=== PATIENT | male | born 1955 | race Caucasian/White ===

== ENCOUNTER 2023-09-27 05:13 | Emergency (ER) | payer MEDICARE, MEDICAID ==
[~2023-09-27] VITALS: Ht 172.7 cm; Wt 109.0 kg
[2023-09-27] MEDS ORDERED: CALCIUM CHLOR(10%) 100MG/ML 10ML SYRINGE IV ONE (05:14)
[2023-09-27 05:23] VITALS: BP 0/0
[2023-09-27 05:27] VITALS: PULSE 0; RESP 0; O2SAT 0
== END 2023-09-27 13:45 ==
LOC: EDBD 05:13 → ER 05:13
DX: I46.9 Cardiac arrest, cause unspecified (principal)
CPT/HCPCS: 92950; 99285; J0171